=== PATIENT | female | born 1955 | race African-American/Black ===

== ENCOUNTER → 2017-05-15 | Day surgery (SDC) | payer BC ==
[~2017-05-15] MED LIST: ALEVE220 M1 PO; DITROPAN5 MG PO; GLUCOTROL; METFORMIN PO; NIACIN500 M3 PO; PRAVASTATIN SOD40 MG PO; PRINIVIL40 MG PO; TOPROL XL50 MG PO; VITAMIN B122500 MCG PO; VITAMIN C500 M5 PO
--- NOTE | ~2017-05-15 | OR ---
Unit #: [id number] #: [id number] Patient: BENI RAMIREZ [id number] [address] [place], [place] [address] [id number] MR#: [id number] NAME: BENI RAMIREZ ROOM: Date of Procedure: 05/15/2017 Admission Date: 05/15/2017 Surgeon: Fabrice Perez M.D. : 1955 Attending Physician: Fabrice Perez M.D. Primary Care Physician: Sam Santiago M.D. [facility]ENTER OPERATIVE NOTE PROCEDURE PERFORMED Lumbar epidural steroid injection under x-ray guided needle placement. PREOPERATIVE DIAGNOSES 1. Acute lumbar radiculitis. 2. Spinal stenosis, lumbosacral spine. 3. Herniated disk, L4-L5. 4. Degenerative joint disease, lumbosacral spine. 5. Degenerative disk disease, lumbosacral spine. INDICATIONS FOR PROCEDURE The patient presents today with a several weeks long history of right-sided radicular pain secondary to her underlying degenerative processes. This pain has failed to respond to conservative measures including medical management and physical therapy and is consistent with her MRI. After discussing risks and benefits of proceeding today with a lumbar approach epidural steroid injection and return on 06/10/2017 for followup, the patient agreed this would be the appropriate course of action. DESCRIPTION OF PROCEDURE She was then taken to the operating room, where she was prepped and draped in a sterile manner. Standard monitors were applied. She refused all forms of sedation and lumbar epidural space accessed at the L4-L5 level using loss of resistance technique and x-ray guidance. Needle placement was confirmed with injection of 2 mL of Omnipaque. Almost all dye flow at this level was in the superior direction; however, the L4 nerve roots did light up to indicate that we had adequate L4-5 coverage. Following successful needle placement confirmation which required an x-ray time of 6 seconds, the patient received an injectate containing 2 mL normal saline, 2 mL of 0.25% bupivacaine, and 80 mg of methylprednisolone. She tolerated this procedure well. She was discharged home with followup instructions which include return date as above, at that date, will follow up for a dual needle L5-S1 and L3-L4 technique. Dictated by... Levi Burnett/modconrado TD: 05/15/2017 12:20 Unit #: [id number] #: [id number] Patient: BENI RAMIREZ JOB #: [id number] CC: Sam Santiago M.D. SUR[facility] CENTER OPERATIVE NOTE Page 1 of 1 X Alberto Perez MD PROCEDURE OPERATIVE NOTE
== END | disposition home or self-care (01) ==
LOC: CCSC 09:04
DX: M51.17 Intervertebral disc disorders with radiculopathy, lumbosacral region (principal); M51.16 Intervertebral disc disorders with radiculopathy, lumbar region; M47.27 Other spondylosis with radiculopathy, lumbosacral region; M48.07 Spinal stenosis, lumbosacral region; Z79.84 Long term (current) use of oral hypoglycemic drugs; Z79.899 Other long term (current) drug therapy; Z98.890 Other specified postprocedural states
CPT/HCPCS: 82947; J1040; J2250